=== PATIENT | female | born 1950 ===

== ENCOUNTER → 2023-07-02 | Outpatient (CLI) | payer OTHER ==
[2023-07-02 09:05] LABS: Anion Gap 8 (5-15); Carbon Dioxide 26 mmol/L (20-30); Chloride 107 mmol/L (98-107); Potassium 4.5 mmol/L (3.5-5.1); Sodium 141 mmol/L (136-145)
[2023-07-02 09:06] LABS: Calcium 9.6 mg/dL (8.5-10.1)
[2023-07-02 09:10] LABS: Glucose 222 mg/dL (74-106)
[2023-07-02 09:11] LABS: BUN/Creatinine Ratio 17.4 (10.0-20.0); Blood Urea Nitrogen 16 mg/dL (9-23); Creatinine, Urine 22.65 mg/dL (30.0-125.0)
[2023-07-02 09:13] LABS: Micro Albumin < 3.0 mg/L (<30.0)
== END | disposition home or self-care (01) ==
LOC: LAB 08:23
PROVIDERS: ATTEND Internal Medicine
DX: E11.69 Type 2 diabetes mellitus with other specified complication (principal)
CPT/HCPCS: 36415; 80048; 82043; 82570; 83036